=== PATIENT | male | born 1960 | race Caucasian/White ===

== ENCOUNTER 2016-08-05 11:13 | Inpatient (IN) | payer OTHER ==
[2016-08-05] MEDS ORDERED: LASIX40 M1 PO (11:37)
[2016-08-05] MEDS ORDERED: MOBIC15 M2 PO (11:37)
[2016-08-05] MEDS ORDERED: TRAMADOL PO (11:38)
[2016-08-05] MEDS ORDERED: KEFLEX500 M4 PO (11:39)
[2016-08-05] MEDS ORDERED: HYDROCODON-ACE1 EA16 PO (11:39)
[2016-08-05 12:32] LABS: BASO % 0.3 % (0-2); EOSINOPHIL ABSOLUTE COUNT 0.2 tho/cmm (0.0-0.7); HCT-HEMATOCRIT 49.7 % (36.0-53.5); HGB-HEMOGLOBIN 16.5 gm/dl (13.5-17.0); IMMATURE GRANULOCYTES ABSOLUTE 0.02 tho/cmm (0-0.03); IMMATURE GRANULOCYTES PERCENT 0.2 % (0-0.3); LYMPH % 16.7 % (20-45); LYMPH ABSOLUTE COUNT 1.7 tho/cmm (0.8-4.5); MCH (MEAN CORPUSCULAR HGB) 28.5 pg (28.0-32.0); MCHC MEAN CORPUSCULAR HGB CONC 33.2 % (32.0-36.0); MEAN PLATELET VOLUME 11.2 cmc (9.4-12.4); MONO % 10.5 % (0-12); MONOCYTE ABSOLUTE COUNT 1.1 tho/cmm (0.0-1.2); NEUTROPHIL ABSOLUTE COUNT 7.2 tho/cmm (1.6-8.0); NEUTROPHIL-AUTOMATED 7.2 tho/cmm (1.6-8.0); NEUTROPHILS % 70.3 % (40-80); PLATELET COUNT 218 tho/cmm (150-450); RED BLOOD COUNT 5.78 mil/cmm (4.40-5.70); RED CELL DISTRIBUTION WIDTH 14.2 % (12.4-16.4); WHITE BLOOD COUNT 10.2 tho/cmm (4.0-10.0)
[2016-08-05 12:47] LABS: ALB/GLOB RATIO 0.8 (0.8-2.0); ALBUMIN 3.5 g/dl (3.5-5.0); ALKALINE PHOSPHATASE 93 U/L (33-138); ALT/SGPT 52 U/L (12-78); ANION GAP 12 mmol/L (0-20); AST/SGOT 61 U/L (10-40); BILIRUBIN,TOTAL 0.7 mg/dl (0.0-1.5); BLOOD UREA NITROGEN 15 mg/dl (6-24); C-REACTIVE PROTEIN 12.3 mg/dl (0-0.9); CARBON DIOXIDE-VENOUS 26 mmol/L (22-32); CHLORIDE 103 mmol/l (96-110); CREATININE 1.08 mg/dl (0.60-1.30); GLUCOSE 100 mg/dL (70-110); SODIUM 137 mmol/L (135-145); eGFR VALUE FOR BLACK 88 mL/Min
[2016-08-05 14:33] LABS: PROCALCITONIN 0.06 ng/ml (0.05-0.09)
--- NOTE | 2016-08-05 19:06 | NUR ---
VIRTUAL CARE NOTE: PT. IS IN HIS CHAIR AND STATES HIS PAIN IS OK, HAS SOME SWELLING IN HIS LEG. ENCOURAGED TO ELEVATE IT ABLE. EDUCATION PROVIDED REGARDING CARDIAC MONITORING VIA TELEMETRY. DENIES FURTHER NEEDS AT THIS TIME, INSTRUCTED TO CALL FOR FUTURE NEEDS. STATES VERBAL AGREEMENT.
[2016-08-06 05:09] LABS: BASO % 0.4 % (0-2); EOS % 3.1 % (0-7); EOSINOPHIL ABSOLUTE COUNT 0.3 tho/cmm (0.0-0.7); HCT-HEMATOCRIT 47.6 % (36.0-53.5); HGB-HEMOGLOBIN 15.4 gm/dl (13.5-17.0); IMMATURE GRANULOCYTES ABSOLUTE 0.03 tho/cmm (0-0.03); IMMATURE GRANULOCYTES PERCENT 0.3 % (0-0.3); LYMPH % 17.4 % (20-45); LYMPH ABSOLUTE COUNT 1.8 tho/cmm (0.8-4.5); MCH (MEAN CORPUSCULAR HGB) 28.3 pg (28.0-32.0); MCHC MEAN CORPUSCULAR HGB CONC 32.4 % (32.0-36.0); MCV (MEAN CELL VOLUME) 87.5 fl (82.0-96.0); MEAN PLATELET VOLUME 11.2 cmc (9.4-12.4); MONO % 8.4 % (0-12); MONOCYTE ABSOLUTE COUNT 0.8 tho/cmm (0.0-1.2); NEUTROPHIL ABSOLUTE COUNT 7.1 tho/cmm (1.6-8.0); NEUTROPHIL-AUTOMATED 7.1 tho/cmm (1.6-8.0); NEUTROPHILS % 70.4 % (40-80); PLATELET COUNT 238 tho/cmm (150-450); RED BLOOD COUNT 5.44 mil/cmm (4.40-5.70); RED CELL DISTRIBUTION WIDTH 14.5 % (12.4-16.4); WHITE BLOOD COUNT 10.1 tho/cmm (4.0-10.0)
[2016-08-06 05:14] LABS: ANION GAP 12 mmol/L (0-20); BLOOD UREA NITROGEN 15 mg/dl (6-24); CALCIUM 8.5 mg/dl (8.5-10.5); CARBON DIOXIDE-VENOUS 26 mmol/L (22-32); CHLORIDE 106 mmol/l (96-110); CREATININE 1.21 mg/dl (0.60-1.30); GLUCOSE 117 mg/dL (70-110); POTASSIUM 4.1 mmol/L (3.7-5.1); SODIUM 140 mmol/L (135-145); eGFR VALUE FOR BLACK 77 mL/Min
--- NOTE | 2016-08-06 21:27 | NUR ---
VN ROUNDING NOTE-PATIENT WAS SITTING UP IN CHAIR COMFORTABLY AND STATES PAIN IS DOING BETTER AND CALL LIGHT BEING ANSWERED PROMPTLY. WE DISCUSSED THE FALL RISK HE WAS UPSET HE CAN WALK HIMSELF DOWN THE HALLS AND TO BATHROOM. HE IS SHOWING A UNIVERSAL RISK SO I EXPLAINED IT WAS BECAUSE HE FELL A WEEK AGO AND HE SAID NO ONE EXPLAINED THAT TO HIM AND THAT EVERYONE HAD TOLD HIM OK TO BE INDEPENDENT. HE WAS UNDERSTANDING AFTER I EXPLAINED AND ENC HIM TO CALL IF ASSISTANCE NEEDED BUT IF THE NURSE WAS OK WITH HIM BEING INDEPENDENT IT WAS FINE. HE EXPLAINED THE FALL HE HAD A WEEK AGO WAS HE STEPPED OFF A 6 IN CURB AND HIS LEG WAS WEAKER THAN HE THOUGH IT WAS GOING TO BE. SO WE REVIEWED SAFETY WITH MACHINES,ETC.
--- NOTE | 2016-08-07 11:28 | NUR ---
VIRTUAL CARE NOTE: pt checked on at this time. he's sitting up in his chair wokring on paperwork for his job. states he has not yet been up for a walk but does plan to soon. up w/ steady gait per report. leg is not currently wrapped, but therabond is in place. pt states the doctor unwrapped and he was waiting for staff to rewrap. did send page to his RN ([place]) at this time to remind her that he was ready to have leg re-dressed. states he has no further questions or needs, pain is well controlled. will continue to monitor. electronic chart reviewed.
[2016-08-08] MEDS ORDERED: CUBICIN RF500 MG IV (11:34)
[2016-08-08] MEDS ORDERED: BACTRIM DS TAB1 EAC2 PO (11:34)
[2016-08-08] MEDS ORDERED: SULFAMYLON60 GM EXT (11:36)
[2016-08-08] MEDS ORDERED: ACIDOPHILUS LA1 EAC1 PO (11:37)
[2016-08-20] MEDS ORDERED: AXIRON PO (10:23)
[2016-08-20] MEDS ORDERED: AXIRON30 MG/1.5 (10:23)
== END 2016-08-08 16:00 | DRG 603 ==
LOC: EDMED 11:13 → EMR2 13:59 → 5WD 16:10
PROVIDERS: Emergency Medicine; Internal Medicine Cardiovascular Disease; ADMIT Hospitalist
PROC: 05H633Z Insertion of Infusion Device into Left Subclavian Vein, Percutaneous Approach (ICD-10-PCS; principal; 2016-08-06)
DX: L03.116 Cellulitis of left lower limb (principal); B95.8 Unspecified staphylococcus as the cause of diseases classified elsewhere; Z68.43 Body mass index [BMI] 50.0-59.9, adult; I87.2 Venous insufficiency (chronic) (peripheral); R00.0 Tachycardia, unspecified; E66.9 Obesity, unspecified; R03.0 Elevated blood-pressure reading, without diagnosis of hypertension; M17.10 Unilateral primary osteoarthritis, unspecified knee; Z91.09 Other allergy status, other than to drugs and biological substances; S80.812A Abrasion, left lower leg, initial encounter; Z91.81 History of falling; W10.1XXA Fall (on)(from) sidewalk curb, initial encounter; Z86.010 Personal history of colon polyps
CPT/HCPCS: C1751; J0878; J1650; J2543; J3370; J7030